=== PATIENT | male | born 1945 | race Caucasian/White ===

== ENCOUNTER 2018-05-16 04:49 | Emergency (ER) | payer MEDICARE ==
[~2018-05-16] VITALS: Ht 175.3 cm; Wt 80.7 kg
[2018-05-16] MEDS ORDERED: FINASTERIDE 5 MG TABLET (04:55)
[2018-05-16] MEDS ORDERED: ATORVASTATIN 40 MG TABLET (04:55)
[2018-05-16] MEDS ORDERED: METOPROLOL TARTRATE 25 MG TAB (04:55)
--- NOTE | 2018-05-16 05:00 | NUR ---
NANDA CONNOR at bedside for MSE.
--- NOTE | 2018-05-16 05:11 | NUR ---
Patient ambulated with stable gait. AAxO x4. Speech is clear, able to speak complete sentences. No neuro deficits. Respiratory even and unlabored. Patient came c/o bleeding s/p accidental removal of his front lower teeth from biting hard into a pit of a date at around 2130 last night. Patient is actively bleeding from lower gums respectively. No GI/ distress. Patient in bed at lowest position, side rails up x2, call light within reach. Fall precautions implemented per protocol.
[2018-05-16 05:21] LABS: BASOPHILS # (AUTO) 0.1 K/uL (0.0-8.0); BASOPHILS % (AUTO) 1.1 % (0.0-2.0); EOSINOPHILS # (AUTO) 0.3 K/uL (0.0-0.7); EOSINOPHILS % (AUTO) 3.8 % (0.0-7.0); HEMOGLOBIN 14.2 g/dL (12.5-16.3); LYMPHOCYTES # (AUTO) 1.7 K/uL (20.0-40.0); LYMPHOCYTES % (AUTO) 23.3 % (20.5-51.5); MEAN CORPUSCULAR HEMOGLOBIN 29.2 uug (23.8-33.4); MEAN CORPUSCULAR HGB CONC 34 g/dL (32.5-36.3); MEAN CORPUSCULAR VOLUME 86.3 fL (73.0-96.2); MONOCYTES # (AUTO) 0.8 K/uL (2.0-10.0); MONOCYTES % (AUTO) 11.4 % (0.0-11.0); NEUTROPHILS # (AUTO) 4.5 K/uL (1.8-8.9); NEUTROPHILS % (AUTO) 60.4 % (38.5-71.5); PLATELET COUNT (AUTO) 289 K/uL (152-348); RED BLOOD CELL COUNT(AUTO) 4.87 MIL/uL (4.06-5.63); WHITE BLOOD COUNT (AUTO) 7.4 K/uL (3.6-10.2)
[2018-05-16 05:50] LABS: BILIRUBIN,DIRECT 0.1 mg/dL (0.0-0.2); BILIRUBIN,TOTAL 0.5 mg/dL (0.2-1.0); CREATININE 0.8 mg/dL (0.6-1.3); POTASSIUM 3.8 mmol/L (3.5-5.1); TOTAL PROTEIN, SERUM 7.8 g/dL (6.4-8.2)
--- NOTE | 2018-05-16 05:54 | NUR ---
Patient in bed. NAD
[2018-05-16] MEDS ORDERED: CEFTRIAXONE 1 G VIAL ONE (06:11)
[2018-05-16] MEDS ORDERED: LIDOCAINE HCL 1% 20 ML VIAL ONE (06:12)
[2018-05-16] MEDS ORDERED: CEFTRIAXONE 1 G VIAL IM ONE (06:15)
--- NOTE | 2018-05-16 06:25 | NUR ---
Patient discharged to home in stable conditon. Written and verbal after care instructions given. Patient verbalizes understanding of instructions. Patient ambulated with stable gait.
[2018-05-16 06:28] VITALS: BP 140/84
== END 2018-05-16 06:28 | disposition home or self-care (01) ==
LOC: ER 04:49
DX: S03.2XXA Dislocation of tooth, initial encounter (principal); K91.840 Postprocedural hemorrhage of a digestive system organ or structure following a digestive system procedure; K05.10 Chronic gingivitis, plaque induced; I10 Essential (primary) hypertension; E78.5 Hyperlipidemia, unspecified; Z79.899 Other long term (current) drug therapy; X58.XXXA Exposure to other specified factors, initial encounter; Y93.89 Activity, other specified; Y92.89 Other specified places as the place of occurrence of the external cause; Y99.8 Other external cause status
CPT/HCPCS: 36415; 80048; 80076; 85025; 85730; 86850; 86900; 86901; 96372; 99283; J0696; J3490 ×2; A4217; A4663